=== PATIENT | male | born 1970 ===

== ENCOUNTER 2018-12-20 09:54 | Emergency (ER) | payer SELFPAY ==
[~2018-12-20] VITALS: Ht 175.3 cm; Wt 98.3 kg
--- NOTE | 2018-12-20 09:55 | NUR ---
pt BIB [facility] for evaluation of open wounds to LLE. per [facility] pt was ound sleeping behind a building by [facility] and they were called. pt is homeless and states that he is going to [place]. pt has numberous bags and itmes with him. pt has a bandage to LLE that was placed by [facility]. per report by has muliptle open wounds that are weeping. pt reported to [facility] that he was treated for these wounds 2 weeks ago in [place] and that he was given PO ABX that he stated he took. pt denies any other medical hx. denies any other c/o at this time. no family at bedside. pt is ambulatory. pt refused any further tx other than [facility] [employer]. no apparent distress at this time
[2018-12-20 10:00] VITALS: BP 114/82
--- NOTE | 2018-12-20 10:04 | NUR ---
pt witnessed walking down the horn with his belongings. when pt addressed, pt states "I am leaving". attempted to talk to pt to ask him to stay for evaluation, pt continued walking down the horn to the exit. Charge nurse notitfied
== END 2018-12-20 14:02 | disposition left against medical advice (07) ==
LOC: ED 12:14
DX: M79.662 Pain in left lower leg (principal); Z53.21 Procedure and treatment not carried out due to patient leaving prior to being seen by health care provider